=== PATIENT | male | born 1950 | race Caucasian/White ===

== ENCOUNTER 2016-11-21 06:19 | Inpatient (IN) | payer OTHER ==
[~2016-11-21] VITALS: Ht 175.3 cm; Wt 117.4 kg
[2016-11-21] VITALS (14 sets, daily range): BP systolic 77–107; BP diastolic 53–72
[2016-11-21 06:40] LABS: EOSINOPHIL (%) 0.3 % (0-5); HEMATOCRIT 37.7 % (38.0-50.0); IMMATURE GRANULOCYTE (%) 0.3 % (0.0-0.7); IMMATURE GRANULOCYTE COUNT 0.4 K/uL; LYMPHOCYTE COUNT 1.2 K/uL (1.0-2.8); MCH 29.5 PG (29.0-34.0); MCHC 33.7 G/DL (30.0-36.0); MCV 87.7 FL (86-99); MEAN PLAT.VOLUME 10.1 uM^3 (9.0-12.4); MONOCYTE (%) 1.9 % (3-12); MONOCYTE COUNT 0.2 K/uL (0-0.8); NEUTROPHIL COUNT 10.9 K/uL (1.8-6.4); PLATELET COUNT 221 K/uL (156-360); RBC DIS.WIDTH-CV 14.1 % (11.8-14.6); RBC DIS.WIDTH-SD 44.6 % (39-53); WHITE BLOOD COUNT 12.4 K/uL (4.1-10.2)
[2016-11-21 06:48] LABS: CHLORIDE 104 mEq/L (99-109); SODIUM 134 mEq/L (136-147)
[2016-11-21 06:49] LABS: INTER. NORMALIZED RATIO 1.1; PTT 28.7 (25-32)
[2016-11-21 06:51] LABS: BASE EXCESS -4.1 mEq/L (-3 to +3); BICARBONATE 21.6 mEq/L (22-26); CARBOXY HGB 1.5 % (0-5); METHEMOGLOBIN 0.8 % (0-1.5); PCO2 41 mm Hg (35-45); pH 7.33 (7.35-7.45)
[2016-11-21 06:51] LABS: GLUCOSE 273 mg/dL (70-99)
[2016-11-21 06:52] LABS: ANION GAP 11 MEQ/L (2-14)
[2016-11-21 06:52] LABS: COMMENTS - BLOOD GASES A+C+; SITE LR
[2016-11-21 06:53] LABS: DEVICE 840; FI02 100 %; MECHANICAL RATE 16 resp/min; MODE AC; PEEP 5 CM/H20; TIDAL VOLUME 500 ML; TOTAL RESP RATE 18 resp/min
[2016-11-21 06:53] LABS: TOTAL BILIRUBIN 0.5 mg/dL (0.0-1.0)
[2016-11-21 06:55] LABS: POTASSIUM 7.5 mEq/L (3.7-5.4)
[2016-11-21 06:56] LABS: UREA NITROGEN (BUN) 36 mg/dL (9-23)
[2016-11-21 07:01] LABS: ALKALINE PHOSPHATASE 84 IU/L (3-129); SERUM ETHYL ALCOHOL < 10 mg/dL; TROP-I INTERPRETATION NEGATIVE; TROPONIN-I 0.01 ng/mL (0.0-0.30)
[2016-11-21 07:02] LABS: GFR ESTIMATE (CALCULATED) 32 mL/min/
[2016-11-21 07:03] LABS: CK-MB 3.3 ng/mL (0.0-4.9)
[2016-11-21 07:04] LABS: CREATINE KINASE 118 IU/L (1-294); TOTAL CK 118 IU/L (1-294)
[2016-11-21 07:52] LABS: BICARBONATE 23.1 mEq/L (22-26); CARBOXY HGB 1.2 % (0-5); COMMENTS - BLOOD GASES A+C+; DEVICE 840; FI02 100 %; MECHANICAL RATE 16 resp/min; METHEMOGLOBIN 0.8 % (0-1.5); MODE AC; PCO2 40 mm Hg (35-45); PEEP 5 CM/H20; PO2 334 mm Hg (80-100); SITE LR; TIDAL VOLUME 500 ML; TOTAL RESP RATE 21 resp/min; pH 7.37 (7.35-7.45)
[2016-11-21] MEDS ORDERED: ENVARSUS XR1 MG PO ×2 (09:05→09:06)
[2016-11-21] MEDS ORDERED: LOPRESSOR25 MG PO (09:06)
[2016-11-21] MEDS ORDERED: ZANTAC75 M1 PO (09:06)
[2016-11-21] MEDS ORDERED: ALEVE220 MG PO (09:08)
[2016-11-21] MEDS ORDERED: PREDNISONE10 MG PO (09:08)
[2016-11-21] MEDS ORDERED: PRED FORTE100 DROP/5 BOTH EYES (09:09)
[2016-11-21] MEDS ORDERED: OXAYDO5 MG PO (09:13)
[2016-11-21] MEDS ORDERED: ROXICODONE5 MG PO (09:22)
[2016-11-21] MEDS ORDERED: TACROLIMUS ANHYD1 MG PO ×2 (09:27)
[2016-11-21 09:34] LABS: ANION GAP 16 MEQ/L (2-14); CHLORIDE 103 MEQ/L (99-109); SAMPLE HEMOLYSIS CHECK 0; SAMPLE ICTERIC CHECK 0; SAMPLE LIPEMIA CHECK 0; SODIUM 138 MEQ/L (136-147)
[2016-11-21 09:35] LABS: POTASSIUM 4.8 MEQ/L (3.7-5.4)
[2016-11-21 09:39] LABS: GFR ESTIMATE (CALCULATED) 40 mL/min/; GLUCOSE 391 mg/dL (70-99); UREA NITROGEN (BUN) 34 mg/dL (9-23)
[2016-11-21 12:12] LABS: METH RESISTANT S AUREUS PCR NEGATIVE (NEGATIVE)
[2016-11-21 12:15] LABS: PROBE CHECK PASS; SPECIMEN PROCESSING CONTROL PASS
[2016-11-21 12:29] LABS: HDL CHOLESTEROL 32 MG/DL (Desirable>=40); LDL CHOLESTEROL 102 mg/dL (Desirable<100); MAGNESIUM 1.7 mg/dl (1.3-2.7); NON-HDL CHOLESTEROL 125 mg/dL (Desirable<160); TOTAL CHOLESTEROL 157 mg/dL (Desirable<200); TRIGLYCERIDES 116 MG/DL (Normal: <150)
[2016-11-21 12:34] LABS: BASE EXCESS -13.5 mEq/L (-3 to +3); CARBOXY HGB 1.7 % (0-5); METHEMOGLOBIN 1.1 % (0-1.5)
[2016-11-21 12:36] LABS: BICARBONATE 12.3 mEq/L (22-26); COMMENTS - BLOOD GASES A+C+; DEVICE VENT; FI02 50 %; MECHANICAL RATE 16 resp/min; MODE ACPC; PCO2 28 mm Hg (35-45); PO2 62 mm Hg (80-100); SITE RR; TOTAL RESP RATE 27 resp/min
[2016-11-21 12:37] LABS: CREATINE KINASE 185 IU/L (1-294); TOTAL CK 185 IU/L (1-294)
[2016-11-21 12:37] LABS: INSPIRATION TIME 0.7 seconds; PEEP 5 CM/H20; PRESSURE CONTROL VENTILATION 15 CM H20
[2016-11-21 12:38] LABS: pH 7.25 (7.35-7.45)
[2016-11-21 12:44] LABS: TROP-I INTERPRETATION INDETERMINATE; TROPONIN-I 0.56 ng/mL (0.0-0.30)
[2016-11-21 13:07] LABS: CK-MB 12.8 ng/mL (0.0-4.9)
[2016-11-21 13:43] LABS: POINT-OF-CARE METER ID UU13113803
[2016-11-21 18:05] LABS: POINT-OF-CARE METER ID UU13113803
[2016-11-21 18:14] LABS: ANION GAP 17 MEQ/L (2-14); CHLORIDE 106 MEQ/L (99-109); MAGNESIUM 1.9 mg/dl (1.3-2.7); POTASSIUM 4.9 MEQ/L (3.7-5.4); SAMPLE HEMOLYSIS CHECK 0; SAMPLE ICTERIC CHECK 0; SAMPLE LIPEMIA CHECK 0; SODIUM 140 MEQ/L (136-147)
[2016-11-21 18:19] LABS: GFR ESTIMATE (CALCULATED) 40 mL/min/; GLUCOSE 367 mg/dL (70-99); UREA NITROGEN (BUN) 33 mg/dL (9-23)
[2016-11-21 18:24] LABS: TROP-I INTERPRETATION POSITIVE
[2016-11-21 18:26] LABS: TROPONIN-I 18.97 ng/mL (0.0-0.30)
[2016-11-21 19:11] LABS: UR CREATININE CONCENTRATION 179.3 MG/DL
[2016-11-21 19:11] LABS: AMPHETAMINES QUANT VALUE 0 NG/ML; BARBITUATES QUANT VALUE 0 NG/ML; BENZODIAZEPINES, URINE SCREEN POSITIVE (200 ng/mL); MARIJUANA QUANT VALUE 0 NG/ML; OPIATES QUANTITATIVE VALUE 0 NG/ML; PHENCYCLIDINE QUANT VALUE 0 NG/ML
[2016-11-21 19:22] LABS: CK-MB 105.3 ng/mL (0.0-4.9)
[2016-11-21 19:34] LABS: TOTAL CK 754 IU/L (1-294)
[2016-11-21 19:35] LABS: CREATINE KINASE 754 IU/L (1-294)
[2016-11-22] VITALS (21 sets, daily range): BP systolic 74–128; BP diastolic 52–82
[2016-11-22 00:11] LABS: POINT-OF-CARE METER ID UU14174217; POINT-OF-CARE USER ID LABHNS84
[2016-11-22 00:53] LABS: TOTAL CK 1502 IU/L (1-294)
[2016-11-22 00:54] LABS: CREATINE KINASE 1502 IU/L (1-294)
[2016-11-22 00:56] LABS: TROP-I INTERPRETATION POSITIVE
[2016-11-22 00:57] LABS: CK-MB 140.1 ng/mL (0.0-4.9)
[2016-11-22 01:13] LABS: TROPONIN-I 69.36 ng/mL (0.0-0.30)
[2016-11-22 06:11] LABS: POINT-OF-CARE METER ID UU14162636; POINT-OF-CARE USER ID LABHNS84
[2016-11-22 07:16] LABS: INTERNAL CONTROL VALID? YES
[2016-11-22 07:55] LABS: EOSINOPHIL (%) 0.4 % (0-5); EOSINOPHIL COUNT 0.1 K/uL (0-0.3); HEMATOCRIT 30.5 % (38.0-50.0); IMMATURE GRANULOCYTE (%) 0.3 % (0.0-0.7); IMMATURE GRANULOCYTE COUNT 0.1 K/uL; LYMPHOCYTE COUNT 1.4 K/uL (1.0-2.8); MCH 28.3 PG (29.0-34.0); MCHC 32.1 G/DL (30.0-36.0); MCV 88.2 FL (86-99); MEAN PLAT.VOLUME 10.2 uM^3 (9.0-12.4); MONOCYTE (%) 7.4 % (3-12); MONOCYTE COUNT 1.1 K/uL (0-0.8); NEUTROPHIL (%) 82.3 % (45-76); NEUTROPHIL COUNT 12.3 K/uL (1.8-6.4); PLATELET COUNT 209 K/uL (156-360); RBC DIS.WIDTH-CV 14.7 % (11.8-14.6); RBC DIS.WIDTH-SD 47.5 % (39-53); RED BLOOD COUNT 3.46 M/uL (4.00-5.50)
[2016-11-22 08:28] LABS: CK-MB 147.7 ng/mL (0.0-4.9)
[2016-11-22 08:37] LABS: ANION GAP 5 MEQ/L (2-14); CHLORIDE 100 MEQ/L (99-109); GFR ESTIMATE (CALCULATED) 36 mL/min/; GLUCOSE 189 mg/dL (70-99); SAMPLE HEMOLYSIS CHECK 0; SAMPLE ICTERIC CHECK 0; SAMPLE LIPEMIA CHECK 0; SODIUM 137 MEQ/L (136-147); TOTAL CK 1165 IU/L (1-294); UREA NITROGEN (BUN) 33 mg/dL (9-23)
[2016-11-22 08:38] LABS: CREATINE KINASE 1165 IU/L (1-294); POTASSIUM 3.9 MEQ/L (3.7-5.4)
[2016-11-22 08:53] LABS: TROP-I INTERPRETATION POSITIVE
[2016-11-22 09:02] LABS: TROPONIN-I 103.82 ng/mL (0.0-0.30)
[2016-11-22 11:02] LABS: BASE EXCESS 4.3 mEq/L (-3 to +3); BICARBONATE 29.2 mEq/L (22-26); CARBOXY HGB 1.8 % (0-5); COMMENTS - BLOOD GASES C+; METHEMOGLOBIN 1.4 % (0-1.5); PCO2 44 mm Hg (35-45); PO2 75 mm Hg (80-100); SITE LR ALINE; pH 7.43 (7.35-7.45)
[2016-11-22 11:03] LABS: DEVICE VENT; FI02 60 %; INSPIRATION TIME 0.9 seconds; MECHANICAL RATE 14 resp/min; MODE AC VC+; PEEP 12 CM/H20; TIDAL VOLUME 500 ML; TOTAL RESP RATE 14 resp/min
[2016-11-22 18:03] LABS: POINT-OF-CARE METER ID UU13113731
[2016-11-22 21:30] LABS: CREATINE KINASE 740 IU/L (1-294); TOTAL CK 740 IU/L (1-294)
[2016-11-22 21:36] LABS: TROP-I INTERPRETATION POSITIVE
[2016-11-22 21:38] LABS: TROPONIN-I 44.29 ng/mL (0.0-0.30)
[2016-11-22 22:01] LABS: CK-MB 47.8 ng/mL (0.0-4.9)
[2016-11-23] VITALS: BP 91/63
[2016-11-23 01:24] LABS: POINT-OF-CARE METER ID UU13113731
[2016-11-23 05:24] LABS: POINT-OF-CARE METER ID UU14174217
[2016-11-23 06:39] LABS: EOSINOPHIL (%) 0 % (0-5); HEMATOCRIT 28.8 % (38.0-50.0); IMMATURE GRANULOCYTE (%) 0.5 % (0.0-0.7); LYMPHOCYTE COUNT 0.2 K/uL (1.0-2.8); MCH 28.5 PG (29.0-34.0); MCHC 31.6 G/DL (30.0-36.0); MCV 90.3 FL (86-99); MONOCYTE (%) 4.4 % (3-12); MONOCYTE COUNT 0.3 K/uL (0-0.8); NEUTROPHIL (%) 91.7 % (45-76); NEUTROPHIL COUNT 5.7 K/uL (1.8-6.4); RBC DIS.WIDTH-CV 14.9 % (11.8-14.6); RBC DIS.WIDTH-SD 49.2 % (39-53); RED BLOOD COUNT 3.19 M/uL (4.00-5.50); WHITE BLOOD COUNT 6.2 K/uL (4.1-10.2)
[2016-11-23 06:47] LABS: ANION GAP 6 MEQ/L (2-14); CHLORIDE 104 MEQ/L (99-109); GFR ESTIMATE (CALCULATED) 43 mL/min/; GLUCOSE 221 mg/dL (70-99); POTASSIUM 3.9 MEQ/L (3.7-5.4); SAMPLE HEMOLYSIS CHECK 0; SAMPLE ICTERIC CHECK 0; SAMPLE LIPEMIA CHECK 0; SODIUM 143 MEQ/L (136-147); UREA NITROGEN (BUN) 27 mg/dL (9-23)
[2016-11-23 07:35] VITALS: BP 97/67
[2016-11-23 08:10] LABS: MEAN PLAT.VOLUME 10.6 uM^3 (9.0-12.4); PLAT.SUFFICIENCY DECREASED; USER ID TLW
[2016-11-23 08:23] LABS: PLATELET COUNT 127 K/uL (156-360)
[2016-11-23 09:00] VITALS: BP 93/62
[2016-11-23 11:22] LABS: BASE EXCESS 5.8 mEq/L (-3 to +3); BICARBONATE 30.6 mEq/L (22-26); CARBOXY HGB 2.2 % (0-5); COMMENTS - BLOOD GASES C+; DEVICE VENT; FI02 40 %; METHEMOGLOBIN 1.2 % (0-1.5); MODE TC; PCO2 45 mm Hg (35-45); PO2 57 mm Hg (80-100); SITE ALINE; TOTAL RESP RATE 17 resp/min; pH 7.44 (7.35-7.45)
[2016-11-23 11:39] LABS: POINT-OF-CARE METER ID UU14174217
[2016-11-23 12:00] VITALS: BP 98/71
== END 2016-11-23 21:49 | DRG 208 ==
LOC: EME 06:19 → EDOF 08:11 → 4WEST 08:11
PROVIDERS: Emergency Medicine; Internal Medicine Cardiovascular Disease; Internal Medicine Nephrology
PROC: 5A1945Z Respiratory Ventilation, 24-96 Consecutive Hours (ICD-10-PCS; principal; 2016-11-21)
PROC: 0BH17EZ Insertion of Endotracheal Airway into Trachea, Via Natural or Artificial Opening (ICD-10-PCS; principal; 2016-11-21)
PROC: B2111ZZ Fluoroscopy of Multiple Coronary Arteries using Low Osmolar Contrast (ICD-10-PCS; 2016-11-22)
PROC: 02HV33Z Insertion of Infusion Device into Superior Vena Cava, Percutaneous Approach (ICD-10-PCS; 2016-11-22)
PROC: 4A023N7 Measurement of Cardiac Sampling and Pressure, Left Heart, Percutaneous Approach (ICD-10-PCS; 2016-11-22)
DX: J96.00 Acute respiratory failure, unspecified whether with hypoxia or hypercapnia (principal); J69.0 Pneumonitis due to inhalation of food and vomit; I21.4 Non-ST elevation (NSTEMI) myocardial infarction; N17.9 Acute kidney failure, unspecified; E87.2 Acidosis; R57.0 Cardiogenic shock; I08.0 Rheumatic disorders of both mitral and aortic valves; E87.5 Hyperkalemia; M10.9 Gout, unspecified; Z94.4 Liver transplant status; Z87.891 Personal history of nicotine dependence; I25.10 Atherosclerotic heart disease of native coronary artery without angina pectoris; Z66 Do not resuscitate; Z51.5 Encounter for palliative care
CPT/HCPCS: 36600; 36620; 70450; 71010; 80048; 80048 91; 80053; 80061; 80197 90; 80306 90; 82550; 82550 91; 82553; 82570; 82803; 82948; 83605; 83735; 84100; 84156; 84300; 84484; 85025; 85347; 85610; 85730; 87040; 87070; 87086; 87205; 87449; 87641; 93005; 93306; 94002; 94003; 94640 76; 94644; 94760; 95819; 99202; 99281; 99285; C1750; C1769; C1887; G0480; J0330; J0696; J1644; J1815; J1940; J2060; J2250; J2270; J2543; J2704; J2920; J2930; J3010; J3475; J7030; J7050; J7070; J7120; J7507; P9045; S0028